=== PATIENT | male | born 1980 | race Caucasian/White ===

== ENCOUNTER 2023-12-23 22:47 | Emergency (ER) | payer OTHER ==
[~2023-12-23] VITALS: Ht 167.6 cm; Wt 111.1 kg
[2023-12-23 22:57] VITALS: BP 129/77; PULSE 78; RESP 16; TEMP 97.6; O2SAT 98
[2023-12-23 23:12] VITALS: BP 129/77; PULSE 78; RESP 16; TEMP 97.6; O2SAT 98
== END 2023-12-24 00:44 | disposition home or self-care (01) ==
LOC: MED 22:47
DX: S40.021A Contusion of right upper arm, initial encounter (principal); W22.8XXA Striking against or struck by other objects, initial encounter; Y93.89 Activity, other specified; Y92.89 Other specified places as the place of occurrence of the external cause; Y99.8 Other external cause status
CPT/HCPCS: 73080; 99283